=== PATIENT | male | born 1930 | race Caucasian/White ===

== ENCOUNTER 2019-09-29 11:30 | Emergency (ER) | payer MEDICARE, OTHER ==
[2019-09-29] MEDS ORDERED: Sodium Chloride 0.9% 1,000 ML IV ONE (11:55)
[2019-09-29] MEDS ORDERED: Sodium Chloride 0.9% 10 ML Syringe FLUSH PRN (11:55)
[2019-09-29 12:19] LABS: ANION GAP 17.4 mmol/L (5-15); CHLORIDE,CL 116 mmol/L (98-115); SODIUM,NA 159 mmol/L (136-145)
--- NOTE | 2019-09-29 12:23 | EDM.PDOC ---
ED HPI GENERAL MEDICAL PROBLEM - General Chief Complaint: General Stated Complaint: LETHARGIC Time Seen by Provider: 09/29/19 12:03 Source of Information: Reports: EMS, EMS Notes Reviewed, Assisted Records, Provider History Limitations: Reports: Altered Mental Status - History of Present Illness INITIAL COMMENTS - FREE TEXT/NARRATIVE: Patient is an 88-year-old gentleman who presents to the emergency department via EMS from [facility] secondary to a complaint of lethargy and upper respiratory symptoms. Duration of symptoms is approximately 2 days. Insufficient [facility] records. Patient said to not be eating or drinking and has not urinated in 2 days. Patient does have baseline dementia and is non-verbal to questions in the emergency department. Onset: Gradual Duration: Day(s): Improves with: Reports: None Worsens with: Reports: None Associated Symptoms: Reports: Cough, cough w sputum, Loss of Appetite. Denies: Chest Pain, Diaphoresis, Fever/Chills, Nausea/Vomiting - Related Data Allergies Allergy/AdvReac Type Severity Reaction Status Date / Time [id number]-[id number]-[id number] Reductase Allergy Cannot Verified 09/29/19 12:14 Inhibitor Remember Home Meds: Home Meds Acetaminophen [Tylenol] 650 mg PO Q6H PRN 09/29/19 [History] Bisacodyl 5 mg PO DAILY PRN 09/29/19 [History] Bisacodyl [Dulcolax] 10 mg RECTAL DAILY PRN 09/29/19 [History] Greybull/Min Oil/Latosha/Wool Alcoh [Eucerin Creme] 1 applic TOP ASDIRECTED PRN 09/29 [History] Finasteride 5 mg PO DAILY 09/29/19 [History] Furosemide 40 mg PO DAILY 09/29/19 [History] Furosemide 80 mg PO BID@0800,1200 09/29/19 [History] Magnesium Hydroxide [Milk of Magnesia] 30 ml PO DAILY PRN 09/29/19 [History] Metoprolol Tartrate 25 mg PO BID 09/29/19 [History] Polyethylene Glycol 3350 [MiraLAX] 17 gm PO Q48H 09/29/19 [History] Rivaroxaban [Xarelto] 20 mg PO DAILY 09/29/19 [History] Spironolactone [Aldactone] 25 mg PO DAILY 09/29/19 [History] Tamsulosin [Flomax] 0.4 mg PO DAILY 09/29/19 [History] guaiFENesin/Dextromethorphan [Robitussin Cough-Chest Dm Liq] 10 ml PO Q4H PRN [History] ED ROS GENERAL - Review of Systems Review Of Systems: Comprehensive ROS is negative, except as noted in HPI. Constitutional: Reports: Malaise, Decreased Appetite HEENT: Reports: No Symptoms Respiratory: Reports: Cough, Sputum Cardiovascular: Reports: Blood Pressure Problem Endocrine: Reports: High Glucose GI/Abdominal: Reports: No Symptoms : Reports: No Symptoms Musculoskeletal: Reports: No Symptoms Skin: Reports: No Symptoms Neurological: Reports: Confusion (Dementia at baseline) Psychiatric: Reports: No Symptoms Hematologic/Lymphatic: Reports: No Symptoms Immunologic: Reports: No Symptoms ED EXAM, GENERAL - Physical Exam Exam: See Below Exam Limited By: Altered Mental Status General Appearance: No Apparent Distress, Lethargic Eye Exam: Bilateral Eye: Normal Inspection Nose: Normal Inspection, Normal Mucosa, No Blood Throat/Mouth: Normal Oropharynx, No Airway Compromise, Other (Dry mucosa) Head: Atraumatic, Normocephalic Neck: Normal Inspection Respiratory/Chest: No Respiratory Distress, Lungs Clear, Decreased Breath Sounds (Bibasilar) Cardiovascular: Tachycardia, Irregularly Irregular GI/Abdominal: Normal Bowel Sounds, Soft, Non-Tender Back Exam: Normal Inspection. No: CVA Tenderness (L), CVA Tenderness (R) Extremities: Normal Inspection, No Pedal Edema Neurological: Confused, Disoriented, Slow to Respond Psychiatric: Flat Affect Skin Exam: Warm, Dry, Normal Color, No Rash Lymphatic: No Adenopathy Course - Orders/Labs/Meds Orders: Active Orders 24 hr Category Date Time Status Peripheral IV Care [RC] . DIRECTED Care 09/29/19 11:56 Active CXR [Chest 1V Frontal] [CR] Stat Exams 09/29/19 11:56 Ordered CXR [Chest 2V] [CR] Stat Exams 09/29/19 11:55 Stop Req COMPREHENSIVE METABOLIC PN,CMP [CHEM] Stat Lab 09/29/19 11:50 Received Sodium Chloride 0.9% [Normal Saline] 1,000 ml Med 09/29/19 11:55 Active IV .BOLUS Sodium Chloride 0.9% [Saline Flush] Med 09/29/19 11:55 Active 10 ml FLUSH Q8HR PRN Peripheral IV Insertion Adult [OM.PC] Routine Oth 09/29/19 11:55 Ordered Medication Orders Sodium Chloride (Normal Saline) 1,000 mls @ 999 mls/hr IV .BOLUS ONE Stop: 09/29/19 12:55 Sodium Chloride (Saline Flush) 10 ml FLUSH Q8HR PRN PRN Reason: keep vein open Labs: Laboratory Tests 09/29/19 Range/Units 11:50 WBC 10.63 H (5.00-10.00) 10^3/uL RBC 5.34 (4.50-6.00) 10^6/uL Hgb 15.5 (13.0-17.0) g/dL Hct 49.0 (40.0-52.0) % MCV 91.8 (82.0-92.0) fL MCH 29.0 (27.0-31.0) pg MCHC 31.6 L (32.0-36.0) g/dL RDW 13.7 (11.5-14.5) % Plt Count 222 (150-400) 10^3/uL MPV 12.6 H (7.4-10.4) fL Immature Gran % (Auto) 0.4 (0.0-5.0) % Neut % (Auto) 80.6 H (50.0-70.0) % Lymph % (Auto) 11.4 L (20.0-40.0) % [place] % (Auto) 7.2 (2.0-8.0) % Eos % (Auto) 0.2 L (1.0-3.0) % Baso % (Auto) 0.2 (0.0-1.0) % Immature Gran # (Auto) 0.04 (0.00-0.50) 10^3/uL Neut # (Auto) 8.57 H (2.50-7.00) 10^3/uL Lymph # (Auto) 1.21 (1.00-4.00) 10^3/uL [place] # (Auto) 0.77 (0.10-0.80) 10^3/uL Eos # (Auto) 0.02 L (0.10-0.30) 10^3/uL Baso # (Auto) 0.02 (0.00-0.10) 10^3/uL Meds: Medications Generic Name Dose Route Start Last Admin Trade Name Leela PRN Reason Stop Dose Admin Sodium Chloride 1,000 mls @ 999 mls/hr 09/29/19 11:55 Normal Saline IV 09/29/19 12:55 .BOLUS ONE Sodium Chloride 10 ml 09/29/19 11:55 Saline Flush FLUSH Q8HR PRN keep vein open - Radiology Interpretation Free Text/Narrative:: Chest x-ray shows no acute cardiopulmonary process - Re-Assessments/Exams Free Text/Narrative Re-Assessment/Exam: 09/29/19 13:59 Discussed case with and Dr. Vaca, at [facility]. Patient will be transferred via ground ambulance. Currently, patient afebrile, vital signs stable, does not appear in distress, oxygen saturation 96% on 2 L nasal cannula, 150 mL normal saline per hour. Departure - Departure Time of Disposition: 14:04 Disposition: DC/Tfer to Acute Hospital 02 Condition: Poor Clinical Impression: Hyperglycemia, Dehydration, Acute renal insufficiency Atrial fibrillation Qualifiers: Atrial fibrillation type: unspecified Qualified Code(s): I48.91 - Unspecified atrial fibrillation Diabetes mellitus Qualifiers: Diabetes mellitus type: type 2 Diabetes mellitus intermediate project manager insulin use: without care home use Diabetes mellitus complication status: without complication Qualified Code(s): E11.9 - Type 2 diabetes mellitus without complications - Discharge Information Referrals: Codie Frey MD [Primary Care Provider] - Forms: ED Department Discharge - My Orders Last 24 Hours: My Active Orders 09/29/19 11:50 COMPREHENSIVE METABOLIC PN,CMP [CHEM] Stat 09/29/19 11:55 CXR [Chest 2V] [CR] Stat Sodium Chloride 0.9% [Normal Saline] 1,000 ml IV .BOLUS Sodium Chloride 0.9% [Saline Flush] 10 ml FLUSH Q8HR PRN Peripheral IV Insertion Adult [OM.PC] Routine 09/29/19 11:56 Peripheral IV Care [RC] . DIRECTED CXR [Chest 1V Frontal] [CR] Stat - Assessment/Plan Last 24 Hours: My Active Orders 09/29/19 11:50 COMPREHENSIVE METABOLIC PN,CMP [CHEM] Stat 09/29/19 11:55 CXR [Chest 2V] [CR] Stat Sodium Chloride 0.9% [Normal Saline] 1,000 ml IV .BOLUS Sodium Chloride 0.9% [Saline Flush] 10 ml FLUSH Q8HR PRN Peripheral IV Insertion Adult [OM.PC] Routine 09/29/19 11:56 Peripheral IV Care [RC] . DIRECTED CXR [Chest 1V Frontal] [CR] Stat Assessment:: Atrial fibrillation, renal failure, dehydration Plan: Transferred to [facility]
--- NOTE | 2019-09-29 12:39 | CR ---
[id number] RAD/RAD Chest PA or AP 1V EXAM: SINGLE VIEW CHEST. INDICATION: LETHARGY COMPARISON: NO PREVIOUS SIMILAR EXAM IS AVAILABLE FINDINGS: There is no pneumonia or edema There is question of an abscess or bulla at the right lung apex The cardiac silhouette is prominent The mediastinum is prominent If symptoms persist, consider contrast CT chest IMPRESSION: NO PNEUMONIA OR EDEMA QUESTION OF RIGHT APICAL PATHOLOGY VERSUS OVERLYING SOFT TISSUES MIMICKING SUCH Daniel Hawkins MD 09/29/19 [id number] Thank you for allowing us to participate in the care of your patient.
[2019-09-29] MEDS ORDERED: Insulin Regular, Human 100 Units/ML 10 ML Vial IV ONE (13:00)
[2019-09-29] MEDS ORDERED: Sodium Chloride 0.9% 1,000 ML ONE (13:52)
[2019-09-29] MEDS ORDERED: Sodium Chloride 0.9% 1,000 ML IV SCH (14:00)
== END 2019-09-29 14:45 ==
LOC: KA.ED 11:30
DX: N19 Unspecified kidney failure (principal); E86.0 Dehydration; I48.91 Unspecified atrial fibrillation; E11.9 Type 2 diabetes mellitus without complications; G30.9 Alzheimer's disease, unspecified; F02.80 Dementia in other diseases classified elsewhere, unspecified severity, without behavioral disturbance, psychotic disturbance, mood disturbance, and anxiety
CPT/HCPCS: 71045; 80053; 82962; 83605; 84484; 85025; 85651; 93005; 96360; 96361; 99283; 99285-25; J7030